=== PATIENT | male | born 1960 | race Caucasian/White ===

== ENCOUNTER 2024-04-11 04:22 | Day surgery (SDC) | payer OTHER ==
[2024-04-10 08:51] VITALS: BMI 29.3
[2024-04-11 08:48] VITALS: TEMP 98.7
[2024-04-11 09:21] VITALS: BP 115/71; PULSE 58; RESP 16
== END 2024-04-11 09:45 | disposition home or self-care (01) ==
LOC: JASU-ENDO 04:22
PROVIDERS: ATTEND Internal Medicine Gastroenterology
PROC: 0DBN8ZX Excision of Sigmoid Colon, Via Natural or Artificial Opening Endoscopic, Diagnostic (ICD-10-PCS; 2024-04-11)
PROC: 0DBK8ZX Excision of Ascending Colon, Via Natural or Artificial Opening Endoscopic, Diagnostic (ICD-10-PCS; 2024-04-11)
PROC: 0DBQ8ZX Excision of Anus, Via Natural or Artificial Opening Endoscopic, Diagnostic (ICD-10-PCS; principal; 2024-04-11 08:00)
DX: Z12.11 Encounter for screening for malignant neoplasm of colon (principal); A63.0 Anogenital (venereal) warts; K63.89 Other specified diseases of intestine
CPT/HCPCS: 88305-TC